=== PATIENT | female | born 1945 | race Two or more races ===

== ENCOUNTER 2022-07-27 23:17 | Inpatient (IN) | payer OTHER ==
[2022-07-29] MEDS ORDERED: INTESTINEX680 M1 (11:41)
[2022-07-29] MEDS ORDERED: JANTOVEN1 MG (11:41)
[2022-08-27] MEDS ORDERED: BUDESONIDE0.5 MG/2 M IH (13:43)
[2022-08-27] MEDS ORDERED: fentanyl patches TD (13:43)
[2022-08-27] MEDS ORDERED: IPRATROPIU0.2 MG/1 M IH (13:43)
== END 2022-08-28 17:37 | disposition home or self-care (01) | DRG 391 ==
LOC: ER 23:17 → SURH 07-28 21:52 → SURG 07-28 21:52 → SEC-K 07-28 22:52 → SURG 07-29 04:56 → SURH 08-04 08:16
PROVIDERS: ADMIT Internal Medicine Geriatric Medicine; ATTEND Internal Medicine Geriatric Medicine
PROC: 02HV33Z Insertion of Infusion Device into Superior Vena Cava, Percutaneous Approach (ICD-10-PCS; 2022-07-28)
PROC: 3E0436Z Introduction of Nutritional Substance into Central Vein, Percutaneous Approach (ICD-10-PCS; 2022-07-30)
PROC: 4A12X4Z Monitoring of Cardiac Electrical Activity, External Approach (ICD-10-PCS; 2022-07-30)
PROC: 0W9J3ZZ Drainage of Pelvic Cavity, Percutaneous Approach (ICD-10-PCS; principal; 2022-07-31)
PROC: 30243K1 Transfusion of Nonautologous Frozen Plasma into Central Vein, Percutaneous Approach (ICD-10-PCS; 2022-07-31)
PROC: 30243L1 Transfusion of Nonautologous Fresh Plasma into Central Vein, Percutaneous Approach (ICD-10-PCS; 2022-07-31)
PROC: 30243N1 Transfusion of Nonautologous Red Blood Cells into Central Vein, Percutaneous Approach (ICD-10-PCS; 2022-08-01)
PROC: 5A0945A Assistance with Respiratory Ventilation, 24-96 Consecutive Hours, High Flow/Velocity Cannula (ICD-10-PCS; 2022-08-08)
PROC: 0W9930Z Drainage of Right Pleural Cavity with Drainage Device, Percutaneous Approach (ICD-10-PCS; 2022-08-11)
PROC: 0W9B30Z Drainage of Left Pleural Cavity with Drainage Device, Percutaneous Approach (ICD-10-PCS; 2022-08-12)
DX: K57.20 Diverticulitis of large intestine with perforation and abscess without bleeding (principal); A41.51 Sepsis due to Escherichia coli [E. coli]; K65.1 Peritoneal abscess; E43 Unspecified severe protein-calorie malnutrition; G92.8 Other toxic encephalopathy; J96.91 Respiratory failure, unspecified with hypoxia; R65.21 Severe sepsis with septic shock; C18.9 Malignant neoplasm of colon, unspecified; Z68.1 Body mass index [BMI] 19.9 or less, adult; I82.502 Chronic embolism and thrombosis of unspecified deep veins of left lower extremity; I50.20 Unspecified systolic (congestive) heart failure; J91.8 Pleural effusion in other conditions classified elsewhere; I11.0 Hypertensive heart disease with heart failure; E86.0 Dehydration; D50.0 Iron deficiency anemia secondary to blood loss (chronic); T40.605A Adverse effect of unspecified narcotics, initial encounter; G30.0 Alzheimer's disease with early onset; F02.80 Dementia in other diseases classified elsewhere, unspecified severity, without behavioral disturbance, psychotic disturbance, mood disturbance, and anxiety; R63.4 Abnormal weight loss; R13.12 Dysphagia, oropharyngeal phase; B37.9 Candidiasis, unspecified; Z66 Do not resuscitate